=== PATIENT | female | born 1985 | race Caucasian/White ===

== ENCOUNTER 2018-06-05 08:42 | Emergency (ER) | END 2018-06-05 09:20 | disposition home or self-care (01) ==

== ENCOUNTER 2018-11-20 10:19 | Emergency (ER) | payer MEDICAID ==
[~2018-11-20] VITALS: Ht 167.6 cm; Wt 78.3 kg
[~2018-11-20 10:19] MED LIST: IBUP-1542 PO; PREN-39
[2018-11-20 10:23] VITALS: Ht 167.6 cm; Wt 78.3 kg
[2018-11-20] MEDS ORDERED: IBUPROFEN 800 MG TAB PO ONE (11:00)
[2018-11-20] MEDS ORDERED: IBUP-1542 PO (11:51)
[2018-11-20 12:48] VITALS: BP 115/69; PULSE 59; RESP 17
--- NOTE | 2018-11-20 13:26 | ERD ---
ER Documentation Chief Complaint Chief Complaint Complains of chest pain and SOB x 2 days HPI Patient is a 33-year-old female with no medical problems who presents with chest pain. The patient said that it started 3 days ago and it is left-sided. It comes and goes and last 20 minutes at a time. She has had no treatment as of yet. She goes to a local clinic for her primary care. ROS All systems reviewed and are negative except as per history of present illness. Medications Home Meds Active Scripts Ibuprofen* (Motrin*) 600 Mg Tab, 600 MG PO Q6H PRN for PAIN AND OR ELEVATED TEMP, #30 TAB Prov:LUPILLO BIRMINGHAM MD 11/20/18 Discontinued Reported Medications Vits W-Ca,Fe,Fa(<1MG) ( Vitamins) 1 Tab Tablet 04/29/11 Discontinued Scripts Ibuprofen* (Motrin*) 600 Mg Tab, 600 MG PO Q6, #30 TAB Prov:VERENA RUIZ PA-C 06/05/18 Allergies Allergies: Coded Allergies: No Known Allergies (Verified Allergy, Mild, 11/20/18) PMhx/Soc Medical and Surgical Hx: pt denies Medical Hx, pt denies Surgical Hx Hx Alcohol Use: No Hx Substance Use: No Hx Tobacco Use: No Smoking Status: Never smoker FmHx Family History: No coronary disease Physical Exam Vitals Vital Signs Date Temp Pulse Resp B/P (MAP) Pulse Ox O2 O2 Flow FiO2 Time Delivery Rate 11/20/18 59 17 115/69 100 Room Air 12:48 (84) 11/20/18 59 17 107/59 100 Room Air 11:25 (75) 11/20/18 98.0 80 20 137/72 98 10:23 (93) Physical Exam Const: No acute distress Head: Atraumatic Eyes: Normal Conjunctiva ENT: Normal External Ears, Nose and Mouth. Neck: Full range of motion. No meningismus. Resp: Clear to auscultation bilaterally Cardio: Regular rate and rhythm, no murmurs, chest wall pain with palpation Abd: Soft, non tender, non distended. Normal bowel sounds Skin: No petechiae or rashes Back: No midline or flank tenderness Ext: No cyanosis, or edema Neur: Awake and alert Psych: Normal Mood and Affect Results 24 hrs Current Medications Medications Dose Sig/Ray Start Time Status Last (Trade) Ordered Route PRN Stop Time Admin Dose Reason Admin Ibuprofen 800 mg ONCE ONCE 11/20/18 DC 11/20/18 (Motrin) PO 11:00 11/20/18 11:02 11:01 Procedures/MDM EKG read by me: Rate/Rhythm: Regular rate and rhythm at a normal rate Intervals: Normal Impression: No evidence of ischemia or arrhythmia Chest x-ray read by radiology. Patient is a 33-year-old female with no medical problems who presents with chest pain. EKG and chest x-ray were negative. The patient was given ibuprofen. She does have reproducible chest pain. At this point I doubt acute coronary s yndrome, pneumonia, pneumothorax, pulmonary embolism, or aortic dissection. She will be discharged but will need to follow-up closely with her primary doctor within 24-48 hours for reevaluation. Departure Diagnosis: Primary Impression: Chest pain Chest pain type: unspecified Qualified Codes: R07.9 - Chest pain, unspecified Condition: Fair Patient Instructions: Chest Pain, Uncertain Cause Referrals: Your doctor Additional Instructions: Llame al doctor NAHEED y kesha giovanny KEENA PARA DENTRO DE 1-2 PALMER.Dgale a la secretaria que nosotros le instruimos hacer esta keena.Avise o llame si ace condicin se empeora antes de la keena. Regresa aqui si peor o no mejor. LUPILLO BIRMINGHAM MD Nov 20, 2018 13:26
== END 2018-11-20 12:49 | disposition home or self-care (01) ==
LOC: E/R 10:19
DX: R07.9 Chest pain, unspecified (principal)
CPT/HCPCS: 71045; 93005; Z7502; Z7610